=== PATIENT | female | born 1965 | race Native Hawaiian/Other Pacific Islander ===

== ENCOUNTER 2016-10-18 10:46 | Inpatient (IN) | payer OTHER ==
[~2016-10-18] VITALS: Ht 162.6 cm; Wt 94.9 kg
[2016-10-18 17:56] VITALS: BP 151/81; TEMP 102.3; Ht 162.6 cm; Wt 94.9 kg
[2016-10-18] MEDS ORDERED: LISI5TAB10 PO (19:45)
[2016-10-18] MEDS ORDERED: DULO30CA OR (19:45)
[2016-10-18] MEDS ORDERED: DICL1GEL2 TOP (19:46)
[2016-10-18] MEDS ORDERED: AMBIEN CR12.5 MG PO (19:49)
[2016-10-18] MEDS ORDERED: CLON1TAB18 PO (19:49)
[2016-10-18] MEDS ORDERED: TRAM50TA PO (19:51)
[2016-10-18 20:00] VITALS: BP 120/58; TEMP 103.2
[2016-10-18 22:14] LABS: PLATELET COUNT 315 K/uL (152-353)
[2016-10-18 22:30] LABS: POTASSIUM 3.1 mmol/L (3.6-5.2)
[2016-10-19] VITALS: BP 125/76; TEMP 100.3
[2016-10-19 04:00] VITALS: BP 108/62; TEMP 98.9
[2016-10-19 05:34] LABS: PLATELET COUNT 303 K/uL (152-353)
[2016-10-19 05:49] LABS: POTASSIUM 3.7 mmol/L (3.6-5.2); SODIUM 134 mmol/L (136-145)
[2016-10-19 08:00] VITALS: BP 112/68; TEMP 99.2
[2016-10-19 11:37] VITALS: BP 98/69; TEMP 98.8
[2016-10-19 16:00] VITALS: BP 106/69; TEMP 99.9
[2016-10-19 20:04] VITALS: BP 110/69; BP 134/86; TEMP 100.6; TEMP 98.1
[2016-10-20] VITALS: BP 95/50; TEMP 99.5
[2016-10-20 04:00] VITALS: BP 139/85; TEMP 101.9
[2016-10-20 05:14] LABS: PLATELET COUNT 286 K/uL (152-353)
[2016-10-20 05:28] LABS: POTASSIUM 3.5 mmol/L (3.6-5.2); SODIUM 134 mmol/L (136-145)
[2016-10-20 08:00] VITALS: BP 147/93; TEMP 99.6
--- NOTE | 2016-10-20 10:43 | NUR ---
PT TRANSPORTED TO [facility] FOR CT SCAN. PT LEFT AT THIS TIME BY [facility] VIA STRETCHER. PT HAS NO QUESTIONS. NO PROBLEMS NOTED.
--- NOTE | 2016-10-20 12:10 | NUR ---
EMS RETURNED PT TO ROOM VIA STRETCHER. NAD NOTED. PT HAS NO COMPLAINTS AT THIS TIME.
[2016-10-20 16:00] VITALS: BP 155/86; TEMP 98.8
--- NOTE | 2016-10-20 16:30 | NUR ---
PT C/O SOB. O2 AT 88%. SHAKIRA RODRIGUEZ [employer]NEY[employer] NOTIFIED. NEW ORDERS PUT IN BY ROXANNA NEAL RN.
--- NOTE | 2016-10-20 16:45 | NUR ---
PT PUT ON O2 NC AT 2L. PT NOW AT 95%. PT HOOKED UP TO TELE, NSR AND HR AT 90-95. PT APPEARS ANXIOUS. ORDERS TO TRANSFER PT TO [facility] FOR CT OF CHEST. WAITING ON EMS AT THIS TIME.
--- NOTE | 2016-10-20 17:00 | NUR ---
LAB RESULTS RECIEVED AND SHOWN TO SHAKIRA PAULINO.
--- NOTE | 2016-10-20 17:44 | NUR ---
PT TRANSPORTED VIA STRETCHER BY [facility] TO [facility] FOR CT OF CHEST. NO PROBLEMS NOTED AT THIS TIME.
[2016-10-20 19:45] VITALS: BP 132/84; TEMP 102.4
[2016-10-21] VITALS: BP 103/58; TEMP 98
[2016-10-21 04:00] VITALS: BP 105/70; TEMP 98.7
[2016-10-21 06:16] LABS: POTASSIUM 2.5 mmol/L (3.6-5.2); SODIUM 134 mmol/L (136-145)
[2016-10-21 06:38] LABS: PLATELET COUNT 248 K/uL (152-353)
[2016-10-21 08:00] VITALS: BP 119/72; TEMP 99.2
[2016-10-21 12:00] VITALS: BP 125/69; TEMP 99.7
[2016-10-21 16:00] VITALS: BP 134/84; TEMP 99.1
--- NOTE | 2016-10-21 17:52 | NUR ---
1330 DR CRUZ IN PT'S ROOM AT THIS TIME. NO C/O OR PROBLEMS NOTED AT THIS TIME. WILL CON'T TO MONIOTR
[2016-10-21 20:00] VITALS: BP 118/63; TEMP 99.2
[2016-10-22] VITALS: BP 118/67; TEMP 98.7
[2016-10-22 04:00] VITALS: BP 125/61; TEMP 98.4
[2016-10-22 05:16] LABS: PLATELET COUNT 308 K/uL (152-353)
[2016-10-22 05:31] LABS: POTASSIUM 3.1 mmol/L (3.6-5.2); SODIUM 139 mmol/L (136-145)
[2016-10-22 07:57] VITALS: BP 169/90; TEMP 97.7
[2016-10-22 11:48] VITALS: BP 137/78; TEMP 98.1
[2016-10-22 16:00] VITALS: BP 131/83; TEMP 99.4
[2016-10-22 20:00] VITALS: BP 138/82; TEMP 99.5
[2016-10-23] VITALS: BP 132/80; TEMP 98.9
[2016-10-23 04:00] VITALS: BP 121/72; TEMP 99.8
[2016-10-23 05:42] LABS: PLATELET COUNT 360 K/uL (152-353)
[2016-10-23 05:55] LABS: POTASSIUM 3.9 mmol/L (3.6-5.2); SODIUM 139 mmol/L (136-145)
[2016-10-23 07:30] VITALS: BP 151/95; TEMP 99.3
[2016-10-23 12:00] VITALS: BP 140/88; TEMP 98.3
[2016-10-23 16:00] VITALS: BP 134/80; TEMP 99.8
[2016-10-23 20:27] VITALS: BP 138/85; BP 148/79; TEMP 98.6; TEMP 99.4
[2016-10-24] VITALS: BP 131/74; TEMP 99
[2016-10-24 04:00] VITALS: BP 155/71; TEMP 98.8
[2016-10-24 05:40] LABS: PLATELET COUNT 389 K/uL (152-353)
[2016-10-24 05:54] LABS: POTASSIUM 3.7 mmol/L (3.6-5.2); SODIUM 137 mmol/L (136-145)
[2016-10-24 08:00] VITALS: BP 138/83; TEMP 96.9
--- NOTE | 2016-10-24 12:42 | NUR ---
1030 REPORT CALLED TO HIPOLITO ISAACS RN AT [facility]. PT TO BE TRANSFERED TO ICU ROOM [id number]. [id number] [facility] HERE TO TRANSFER PT. AND PT TRANSFERRED TO [facility] IN [place].
== END 2016-10-24 12:30 | disposition short-term general hospital (02) | DRG 871 ==
LOC: LABW 10:46 → MED/SURG 16:22
PROVIDERS: ADMIT Family Medicine
DX: A41.51 Sepsis due to Escherichia coli [E. coli] (principal); J18.8 Other pneumonia, unspecified organism; K57.92 Diverticulitis of intestine, part unspecified, without perforation or abscess without bleeding; E87.6 Hypokalemia; E83.51 Hypocalcemia; R11.2 Nausea with vomiting, unspecified; E11.9 Type 2 diabetes mellitus without complications
CPT/HCPCS: 36415; 36430; 36591; 36600; 74022; 80048; 80053; 80202; 82550; 82553; 82607; 82652; 82805; 82948; 83605; 83735; 83880; 84484; 85027; 85379; 87040; 87070; 87077; 87186; 87205; 93005; 94640; 94664; 94668; 94760; 96365; 96366; 96367; 96372; 96375; J1650; J1885; J1940; J2175; J2543; J3010; J3370

== ENCOUNTER 2021-06-19 10:05 | Outpatient (CLI) | payer OTHER ==
[~2021-06-19 10:05] MED LIST: AMBIEN CR12.5 MG PO; CLON1TAB18 PO; DICL1GEL2 TOP; DULO30CA OR; LISI5TAB10 PO; TRAM50TA PO
== END 2021-06-19 19:02 | disposition home or self-care (01) ==
LOC: RAD 10:05
PROVIDERS: ATTEND Family Medicine
DX: Z09 Encounter for follow-up examination after completed treatment for conditions other than malignant neoplasm (principal); Z86.39 Personal history of other endocrine, nutritional and metabolic disease; N95.8 Other specified menopausal and perimenopausal disorders